=== PATIENT | female | born 1955 | race Caucasian/White ===

== ENCOUNTER 2024-07-21 06:14 | Day surgery (SDC) | payer OTHER ==
[2024-07-17 17:12] VITALS: BMI 21.2
[2024-07-21] MEDS ORDERED: TETRACAINE 0.5% OPHTH SOLN 2 ML BOTTLE ONE (07:15)
[2024-07-21] MEDS ORDERED: ceFAZolin SODIUM 1 GM VIAL ONE ×2 (07:15→07:55)
[2024-07-21] MEDS ORDERED: ERYTHROMYCIN 0.5% OPHTHALMIC OINTMENT 3.5 GM TUBE ONE (07:15)
[2024-07-21] MEDS ORDERED: POVIDONE-IODINE 5% OPHTHALMIC PREP 30 ML SOLUTION ONE (07:15)
[2024-07-21] MEDS ORDERED: LIDOCAINE 1%/EPI 1:100000 (20 ML MULTI DOSE VIAL) ONE (07:15)
[2024-07-21] MEDS ORDERED: PROPOFOL 40 ML ONE (07:28)
[2024-07-21] MEDS ORDERED: MIDAZOLAM HCL 2 MG/2 ML SINGLE DOSE VIAL ONE (07:29)
[2024-07-21] MEDS ORDERED: ONDANSETRON 4 MG/2 ML VIAL ONE ×2 (07:55→09:19)
[2024-07-21] MEDS ORDERED: DEXAMETHASONE SOD PHOSPHATE 4 MG/1 ML VIAL ONE (07:55)
[2024-07-21] MEDS ORDERED: FLUMAZENIL 0.5 MG/5 ML VIAL ONE (08:43)
[2024-07-21] MEDS ORDERED: FENTANYL CITRATE/PF 50 MCG/ML VIAL ONE ×2 (09:19→09:45)
[2024-07-21] MEDS: ONDANSETRON 4 MG/2 ML VIAL IVPUSH PRN (09:30)
[2024-07-21] MEDS ORDERED: LACTATED RINGERS SOLUTION 1,000 ML IV SCH (09:30)
[2024-07-21] MEDS ORDERED: ACETAMINOPHEN INJECTION 100 ML ONE (09:36)
[2024-07-21] MEDS: ACETAMINOPHEN 1000 MG/100 ML BAG IVPB ONE (09:42)
[2024-07-21] MEDS: oxyCODONE HCL 5 MG TABLET PO PRN (10:36)
[2024-07-21] MEDS ORDERED: oxyCODONE HCL 5 MG TABLET ONE (10:36)
[2024-07-21 11:19] VITALS: RESP 16; TEMP 96
[2024-07-21 11:24] VITALS: BP 130/86; PULSE 66
== END 2024-07-21 11:20 | disposition home or self-care (01) ==
LOC: FASU 06:14
PROVIDERS: ATTEND Ophthalmology
PROC: 08SN0ZZ Reposition Right Upper Eyelid, Open Approach (ICD-10-PCS; 2024-07-21)
PROC: 08SP0ZZ Reposition Left Upper Eyelid, Open Approach (ICD-10-PCS; principal; 2024-07-21 08:03)
DX: H02.423 Myogenic ptosis of bilateral eyelids (principal)
CPT/HCPCS: 94760; J0131